=== PATIENT | male | born 1955 | race Caucasian/White ===

== ENCOUNTER 2023-03-03 15:05 | Emergency (ER) | payer OTHER, SELFPAY ==
[2023-03-03] VITALS (18 sets, daily range): BP systolic 136–196; BP diastolic 75–97; PULSE 66–76; RESP 16; TEMP 36.6; O2SAT 98–100; BMI 34.9
--- NOTE | 2023-03-03 16:11 | PC.NURSE ---
Pt reports that he has been traveling and has not been taking his diuretics. Pt has hx of fluid retention and he states that he has been regularly having paracentesis where 1000-1500cc drained off approximately every 2 weeks. pt states that he is having mild sob but no cp but he does report that his abd feels tight. pt abd distended and shows mild work of breathing when ambulated to [facility] from the waiting room. pt a&ox4.
--- NOTE | 2023-03-03 16:17 | DI.US.S_ITS ---
PROCEDURE: US ABDOMEN LIMITED INDICATIONS: Ascites TECHNIQUE: Real-time focused scanning was performed of the abdomen, with image documentation. COMPARISON: None. FINDINGS: Ultrasound performed for the purposes of identifying a large enough pocket of ascites for paracentesis period adequate fluid is noted in the right lower quadrant, which has been marked on the skin at a depth of 8 cm from the scan period IMPRESSION: Sufficient ascitic fluid for paracentesis. A site has been marked on the skin. Dictated by: Farhad Hollingsworth M.D. on 03/03/2023 at 17:05 Approved by: Farhad Hollingsworth M.D. on 03/03/2023 at 17:06
[2023-03-03 16:32] LABS: Add Manual Diff / Slide Review NO; Basophils Absolute Auto 100 /uL (0-100); Basophils Percent Auto 0.9 % (0-2); Eosinophils Absolute Auto 100 /uL (0-450); Eosinophils Percent Auto 1.4 % (2-4); Hematocrit 39.3 % (41-53); Hemoglobin 13.5 g/dL (13.5-17.5); Lymphocytes Absolute Auto 700 /uL (1100-4500); Mean Corpuscular HGB Conc 34.5 % (30-36); Mean Corpuscular Hemoglobin 30.9 PG (26-34); Mean Corpuscular Volume 89.8 fL (80-100); Monocytes Absolute Auto 900 /uL (0-900); Monocytes Percent Auto 13.8 % (3-14); Neutrophils Absolute Auto 4500 /uL (1500-7000); Neutrophils Percent Auto 72.9 % (50-75); Platelet Count 176 X10^3/uL (150-400); Red Blood Cell Count 4.38 X10^6/uL (4.5-5.9); Red Cell Distribution Width 14.9 % (11.6-14.8); White Blood Cell Count 6.2 X10^3/uL (4.5-11.0)
[2023-03-03 16:41] LABS: INR 1.3 (0.9-1.3); Prothrombin Time 15.1 SECONDS (10.1-12.7)
[2023-03-03 16:44] LABS: PTT Partial Thromboplastin Tim 35 SECONDS (26-36)
[2023-03-03 16:45] LABS: Alanine Aminotransferase 40 IU/L (<50); Albumin 3.4 g/dL (3.5-5.0); Albumin Globulin Ratio 0.7 (1.0-2.8); Alkaline Phosphatase 147 U/L (38-126); Aspartate Aminotransferase 62 IU/L (17-59); BUN Creatinine Ratio 19.2 (6-22); Bilirubin Total 1.4 mg/dL (0.2-1.3); Blood Urea Nitrogen 15 mg/dL (9-20); Calcium 8.2 mg/dL (8.4-10.2); Carbon Dioxide 27 mmol/L (22-32); Chloride 105 mmol/L (98-107); Estimated Glomerular Filt Rate > 60 mL/min (>60); Glucose 84 mg/dL (80-110); HEMOLYSIS < 15 (0-50); Lipase 83 U/L (23-300); Sodium 136 mmol/L (137-145); Total Protein 8.4 g/dL (6.3-8.2)
--- NOTE | 2023-03-03 17:17 | ED_ITS ---
HPI - Abdominal Pain General Chief Complaint: Abdominal Pain Stated Complaint: NEEDS TO GET FLUID DRAINED Time Seen by Provider: 03/03/23 16:00 Mode of arrival: Family Vehicle History of Present Illness HPI narrative: Patient 68-year-old male history of hepatitis-C ascites presents today with increased abdominal swelling and need for paracentesis. He reports that he is moving here from [place] he has been driving across the country he is not taking his diuretics. In [place] he was set up to have paracentesis every 2 weeks. However he has not had it and not been taking his meds. He is not yet established with care here. No fever no abdominal pain. He does report some shortness of breath his is big but. But overall feels good. Related Data Previous Rx's Medication Instructions Recorded furosemide 80 mg tablet (Lasix) 80 mg PO DAILY #60 tabs 03/03/23 rifaximin 550 mg tablet (Xifaxan) 550 mg PO BID #90 tabs 03/03/23 spironolactone 100 mg tablet 100 mg PO DAILY #60 tabs 03/03/23 Allergies Allergy/AdvReac Type Severity Reaction Status Date / Time No Known Drug Allergies Allergy Verified 03/03/23 15:15 Review of Systems Review of Systems ROS Unobtainable: All systems reviewed & are unremarkable except as noted in HPI and below Patient History Social History Smoking Status: Current every day smoker Smoking Status: Current every day smoker Substance Use Type: does not use Exam Initial Vital Signs Initial Vital Signs: Vital Signs Temperature 98 F 03/03/23 15:12 Pulse Rate 76 03/03/23 15:12 Respiratory Rate 16 03/03/23 15:12 Blood Pressure 196/97 H 03/03/23 15:12 Pulse Oximetry 99 03/03/23 15:12 Oxygen Delivery Method Room Air 03/03/23 15:12 GENERAL: Alert well-appearing 60-year-old male HEENT: Head atraumatic,EOMI, pupils reactive, face symmetric, moist mucous membranes CARDIOVASCULAR: Regular rate and rhythm without murmurs, rubs or gallops. RESPIRATORY: Breath sounds equal bilaterally, no wheezes rales or rhonchi. ABDOMEN: Distended fluid wave quite big EXTREMITIES: Normal range of motion, no clubbing or edema. Neurovascularly intact NEUROLOGICAL: Alert and oriented x4.Normal gait and speech. SKIN: Warm, dry, no laceration, no petechiae, no rashes or lesions. Procedures Paracentesis Time Out Performed: Yes Indication: Ascites Procedure: therapeutic paracentesis Location: RLQ Local Anesthetic: lidocaine 1% Amount of anesthesia used (mL): 3 Bedside Ultrasound Used: yes, Ascites confirmed and location marked Preparation: sterile prep and drape and Blade used to make abundio in skin Amount of fluid obtained (mL): 4,000 Fluid: clear Patient Tolerated Procedure: Well and No complications Course Orders Ordered: ED Orders 03/03/23 16:17 US abdomen limited Stat 03/03/23 16:23 Complete Blood Count AUTO DIFF Stat Comprehensive Metabolic Panel Stat Lipase Stat PTT Partial Thromboplastin Keshawn Stat Prothrombin Time INR Stat Vital Signs Vital signs: Vital Signs - 8 hr 03/03/23 15:12 03/03/23 16:14 03/03/23 16:30 Temperature 98 F Pulse Rate 76 69 71 Respiratory Rate 16 Blood Pressure 196/97 H Pulse Oximetry 99 99 100 Oxygen Delivery Method Room Air 03/03/23 16:52 03/03/23 16:52 03/03/23 17:00 Temperature Pulse Rate 71 Respiratory Rate Blood Pressure 141/85 H 137/80 Pulse Oximetry 100 Oxygen Delivery Method 03/03/23 17:00 03/03/23 17:30 03/03/23 17:30 Temperature Pulse Rate 68 66 Respiratory Rate Blood Pressure 142/84 H Pulse Oximetry 100 99 Oxygen Delivery Method 03/03/23 17:49 03/03/23 17:49 03/03/23 17:50 Temperature Pulse Rate 68 68 Respiratory Rate Blood Pressure 139/80 Pulse Oximetry 100 100 Oxygen Delivery Method 03/03/23 17:50 03/03/23 17:55 03/03/23 17:55 Temperature Pulse Rate 69 Respiratory Rate Blood Pressure 149/84 H 153/89 H Pulse Oximetry 100 Oxygen Delivery Method 03/03/23 18:00 03/03/23 18:00 03/03/23 18:05 Temperature Pulse Rate 70 72 Respiratory Rate Blood Pressure 166/90 H Pulse Oximetry 100 100 Oxygen Delivery Method 03/03/23 18:05 03/03/23 18:10 03/03/23 18:10 Temperature Pulse Rate 71 Respiratory Rate Blood Pressure 174/92 H 165/92 H Pulse Oximetry 100 Oxygen Delivery Method MDM - Abdominal Pain Lab Data 03/03/23 16:23 03/03/23 16:23 Labs: Lab Results 03/03/23 Range/Units 16:23 WBC 6.2 (4.5-11.0) X10^3/uL RBC 4.38 L (4.5-5.9) X10^6/uL Hgb 13.5 (13.5-17.5) g/dL Hct 39.3 L (41-53) % MCV 89.8 (80-100) fL MCH 30.9 (26-34) PG MCHC 34.5 (30-36) % RDW 14.9 H (11.6-14.8) % Plt Count 176 (150-400) X10^3/uL Neut % (Auto) 72.9 (50-75) % Lymph % (Auto) 11.0 L (25-40) % [place] % (Auto) 13.8 (3-14) % Eos % (Auto) 1.4 L (2-4) % Baso % (Auto) 0.9 (0-2) % Neut # (Auto) 4500 (2297-4953) /uL Lymph # (Auto) 700 L (2951-1237) /uL [place] # (Auto) 900 (0-900) /uL Eos # (Auto) 100 (0-450) /uL Baso # (Auto) 100 (0-100) /uL PT 15.1 H (10.1-12.7) SECONDS INR 1.3 (0.9-1.3) APTT 35 (26-36) SECONDS Sodium 136 L (137-145) mmol/L Potassium 4.0 (3.4-5.1) mmol/L Chloride 105 (98-107) mmol/L Carbon Dioxide 27 (22-32) mmol/L BUN 15 (9-20) mg/dL Creatinine 0.78 (0.66-1.25) mg/dL Estimated GFR > 60 (>60) mL/min BUN/Creatinine Ratio 19.2 (6-22) Glucose 84 (80-110) mg/dL Calcium 8.2 L (8.4-10.2) mg/dL Total Bilirubin 1.4 H (0.2-1.3) mg/dL AST 62 H (17-59) IU/L ALT 40 (<50) IU/L Alkaline Phosphatase 147 H (38-126) U/L Total Protein 8.4 H (6.3-8.2) g/dL Albumin 3.4 L (3.5-5.0) g/dL Globulin 5.0 H (1.7-4.1) g/dL Albumin/Globulin Ratio 0.7 L (1.0-2.8) Lipase 83 (23-300) U/L Imaging Data US - abdomen: Radiologist's Impression: PROCEDURE: US ABDOMEN LIMITED INDICATIONS: Ascites TECHNIQUE: Real-time focused scanning was performed of the abdomen, with image documentation. COMPARISON: None. FINDINGS: Ultrasound performed for the purposes of identifying a large enough pocket of ascites for paracentesis period adequate fluid is noted in the right lower quadrant, which has been marked on the skin at a depth of 8 cm from the scan period IMPRESSION: Sufficient ascitic fluid for paracentesis. A site has been marked on the skin. Dictated by: Farhad Hollingsworth M.D. on 03/03/2023 at 17:05 MDM Narrative Medical decision making narrative: Patient is 68-year-old male known hepatitis ascites has regular paracentesis but missed some and not been taking his meds doing to a recent move. He knows he needs to get set up with GI and PCP. He wants refills on his medications. He tolerated 4 L off without any drop in blood pressure. He is afebrile no leukocytosis no concern for SBP he has no abdominal pain or altered mental status. No fluid samples sent. Patient is feeling a lot better. I have refilled all of his medications given him information on who to call for PCP. Blood work has been reviewed: No leukocytosis no anemia platelets are 178, INR 1.3 PTT 35, bilirubin 1.4, AST 62 ALT 40 alk-phos 147 lipase 83 Ultrasound to [facility] for ascites Patient initially was complaining of shortness of breath but likely secondary due to large amount of fluid in his abdomen he is not having any respiratory distress he is not hypoxic and symptoms immediately improved after removal of ascites. Discharge Plan Departure Patient Disposition: Home Clinical Impression: Abdominal ascites, Hepatitis Instructions: DI for Ascites Activity Restrictions/Additional Instructions: *You have been diagnosed with abdominal ascites and hepatitis *What to do: At this time please restart all of your medications I will give you refills. Please get set up with a primary care provider and GI so that you can have your regular paracentesis as needed. *Continue to take medications as directed--> [facility] in [place] Spironolactone 100 mg once daily Furosemide 80 mg once a day Xifaxan 550mg twice daily *Follow up with your primary care provider in 2-3 days or call [phone] *Return to ER if you should have increased abdominal pain fever chest pain shortness of breath [or] any new, worsening or concerning symptoms Prescriptions: New spironolactone 100 mg tablet 100 mg PO DAILY Qty: 60 0RF furosemide [Lasix] 80 mg tablet 80 mg PO DAILY Qty: 60 0RF Xifaxan 550 mg tablet 550 mg PO BID Qty: 90 0RF Referrals: Jose Angel Johnson MD [Non-Staff] - José Miguel Yates MD [Physician] - Stand Alone Forms: Patient Portal/API
== END 2023-03-03 18:43 | disposition home or self-care (01) ==
PROVIDERS: Emergency Provider Emergency Medicine
DX: R18.8 Other ascites (principal); K75.9 Inflammatory liver disease, unspecified; Z79.01 Long term (current) use of anticoagulants
CPT/HCPCS: 36415; 49083; 76705; 80053; 83690; 85025; 85610; 85730; 99283; 99284